=== PATIENT | female | born 1990 | race Two or more races ===

== ENCOUNTER → 2017-02-12 | Outpatient (REF) | payer OTHER ==
[2017-02-12 19:06] LABS: ALBUMIN 4.3 GM/DL (3.2-5.2); ALBUMIN/GLOBULIN RATIO 2.15 (1.00-1.93); ALKALINE PHOSPHATASE 86 U/L (45-117); ALT/SGPT 27 U/L (12-78); ANION GAP 5 MEQ/L (8-16); AST/SGOT 9 U/L (15-37); BILIRUBIN,TOTAL 0.4 MG/DL (0.2-1.0); BLOOD UREA NITROGEN 12 MG/DL (7-18); CALCIUM LEVEL 9.7 MG/DL (8.5-10.1); CARBON DIOXIDE LEVEL 30 MEQ/L (21-32); CHLORIDE LEVEL 107 MEQ/L (98-107); CREATININE FOR GFR 0.85 MG/DL (0.55-1.02); GLOMERULAR FILTRATION RATE > 60.0 (>60); GLUCOSE, FASTING 75 MG/DL (70-105); POTASSIUM SERUM 4.3 MEQ/L (3.5-5.1); SODIUM LEVEL 142 MEQ/L (136-145); TOTAL PROTEIN 6.3 GM/DL (6.4-8.2)
== END ==
LOC: M SFHCPLAZ 14:59
PROVIDERS: ATTEND Family Medicine
DX: Z11.3 Encounter for screening for infections with a predominantly sexual mode of transmission (principal); F10.99 Alcohol use, unspecified with unspecified alcohol-induced disorder; E55.9 Vitamin D deficiency, unspecified; Z11.59 Encounter for screening for other viral diseases

== ENCOUNTER → 2017-03-15 | Outpatient (REF) | payer OTHER | LOC: M SFHCLERA 14:07 | PROVIDERS: ATTEND Nurse Practitioner Family | DX: R30.0 Dysuria (principal) ==

== ENCOUNTER → 2017-03-30 | Outpatient (REF) | payer OTHER | LOC: M SFHCPLAZ 11:52 | PROVIDERS: ATTEND Family Medicine | DX: Z11.3 Encounter for screening for infections with a predominantly sexual mode of transmission (principal); Z12.4 Encounter for screening for malignant neoplasm of cervix ==

== ENCOUNTER → 2017-05-10 | Outpatient (REF) | payer OTHER | LOC: M SFHCPLAZ 08:28 | PROVIDERS: ATTEND Family Medicine | DX: Z11.3 Encounter for screening for infections with a predominantly sexual mode of transmission (principal) ==

== ENCOUNTER → 2017-07-05 | Day surgery (SDC) | payer OTHER ==
[~2017-07-05] MED LIST: BUPIVACAINE HCL 0.5% 10 ML VIAL As Ordered; LIDOCAINE W/EPINEPHRINE 1% 20ML VIAL As Ordered; LR 1,000 ML IV
== END ==
LOC: M SDC 08:46
DX: J35.01 Chronic tonsillitis (principal); Z53.09 Procedure and treatment not carried out because of other contraindication

== ENCOUNTER → 2017-09-10 | Outpatient (CLI) | payer OTHER | LOC: M OUTALCOH 09:19 | DX: Z13.9 Encounter for screening, unspecified (principal); F10.20 Alcohol dependence, uncomplicated ==

== ENCOUNTER 2017-09-24 09:18 | Outpatient (RCR) | payer OTHER | END 2017-09-29 | LOC: M OUTALCOH 09:18 | DX: F10.20 Alcohol dependence, uncomplicated (principal); Z72.0 Tobacco use ==

== ENCOUNTER 2017-10-01 13:20 | Outpatient (RCR) | payer OTHER | END 2017-10-29 | LOC: M OUTALCOH 10-08 10:00 | DX: F10.20 Alcohol dependence, uncomplicated (principal); Z72.0 Tobacco use ==

== ENCOUNTER → 2017-10-12 | Outpatient (REF) | payer OTHER | LOC: M LAB REF 16:29 | DX: R30.0 Dysuria (principal) ==

== ENCOUNTER 2017-11-01 11:22 | Outpatient (RCR) | payer OTHER | END 2017-11-29 | LOC: M OUTALCOH 11:22 | DX: F10.20 Alcohol dependence, uncomplicated (principal); Z72.0 Tobacco use ==

== ENCOUNTER 2017-12-03 10:19 | Outpatient (RCR) | payer OTHER | END 2017-12-29 | LOC: M OUTALCOH 12-10 15:00 | DX: F10.20 Alcohol dependence, uncomplicated (principal); Z72.0 Tobacco use ==

== ENCOUNTER → 2017-12-26 | Outpatient (REF) | payer OTHER | LOC: M SFHCLERA 12:59 | DX: J02.9 Acute pharyngitis, unspecified (principal) ==

== ENCOUNTER 2017-12-31 10:46 | Outpatient (RCR) | payer OTHER | END 2018-01-29 | LOC: M OUTALCOH 01-07 11:30 | DX: F10.20 Alcohol dependence, uncomplicated (principal); Z72.0 Tobacco use ==

== ENCOUNTER → 2018-02-20 | Outpatient (REF) | payer OTHER ==
[2018-02-20 16:00] LABS: APPEARANCE, URINE CLOUDY (CLEAR); BACTERIA, URINE AUTO 2+ (NEGATIVE); BILIRUBIN, URINE AUTO NEGATIVE (NEGATIVE); BLOOD, URINE BLOOD 1+ (NEGATIVE); COLOR, URINE YELLOW (YELLOW); GLUCOSE, URINE (UA) AUTO NEGATIVE (NEGATIVE); KETONE, URINE AUTO NEGATIVE (NEGATIVE); LEUKOCYTE ESTERASE, URINE AUTO 3+ (NEGATIVE); NITRITE, URINE AUTO POSITIVE (NEGATIVE); PROTEIN, URINE AUTO 1+ mg/dL (NEGATIVE); RBC, URINE AUTO 21 /HPF (0-3); SPECIFIC GRAVITY URINE AUTO 1.017 (1.002-1.035); SQUAMOUS EPITHELIAL CELL UR AU 0 /HPF (0-6); UROBILINOGEN, URINE AUTO 0.2 mg/dL (0.0-2.0); WBC, URINE AUTO TNTC /HPF (0-3)
[2018-02-20 17:02] LABS: HIV 1&2 SCREEN CENTAUR NEGATIVE (NEGATIVE)
[2018-02-20 17:45] LABS: CHLAMYDIA DNA AMPLIFICATION NEGATIVE (NEGATIVE); GC DNA AMPLIFICATION NEGATIVE (NEGATIVE)
[2018-02-23 00:07] LABS: Candida species Negative (Negative); Gardnerella vaginalis Negative (Negative); Trichamonas vaginalis Negative (Negative)
== END ==
LOC: M SFHCPLAZ 14:38
DX: N89.8 Other specified noninflammatory disorders of vagina (principal); R30.0 Dysuria; E55.9 Vitamin D deficiency, unspecified; Z11.3 Encounter for screening for infections with a predominantly sexual mode of transmission

== ENCOUNTER → 2022-01-25 | Outpatient (CLI) | payer OTHER ==
[~2022-01-25] MED LIST changes: -BUPIVACAINE HCL 0.5% 10 ML VIAL As Ordered; +GLUC1CAP10 PO; -LIDOCAINE W/EPINEPHRINE 1% 20ML VIAL As Ordered; -LR 1,000 ML IV
== END ==
LOC: M RAD 15:14
PROVIDERS: ATTEND Otolaryngology
DX: H66.3X1 Other chronic suppurative otitis media, right ear (principal)

== ENCOUNTER 2022-09-17 04:09 | Emergency (ER) | payer OTHER ==
[~2022-09-17] VITALS: Ht 167.6 cm; Wt 92.5 kg
[2022-09-17] MEDS ORDERED: CEFD300C41 PO (05:33)
[2022-09-17] MEDS ORDERED: CEFDINIR 300 MG CAP (OMNICEF) PO ONE (05:35)
[2022-09-17 05:42] VITALS: BP 129/74
== END 2022-09-17 05:44 | disposition home or self-care (01) ==
LOC: M ED 04:09
DX: H65.01 Acute serous otitis media, right ear (principal); F10.10 Alcohol abuse, uncomplicated; Z79.2 Long term (current) use of antibiotics

== ENCOUNTER 2022-11-08 18:25 | Observation (INO) | payer OTHER ==
[~2022-11-08] VITALS: Ht 167.6 cm; Wt 90.9 kg
[~2022-11-08 18:25] MED LIST changes: +CEFD300C41 PO
[2022-11-08 20:11] LABS: BASO # 0.1 10^3/uL (0.0-0.2); EOS % 0.1 % (0.0-3.0); HEMATOCRIT 48.6 % (36.0-47.0); HEMOGLOBIN 16.2 g/dl (12.0-15.5); LYMPH # 1.2 10^3/uL (1.5-5.0); LYMPH % 15.2 % (24.0-44.0); MEAN CORPUSCULAR HEMOGLOBIN 31.5 pg (27.0-33.0); MEAN CORPUSCULAR HGB CONC 33.3 g/dl (32.0-36.5); MEAN CORPUSCULAR VOLUME 94.6 fl (80.0-96.0); MONO # 0.8 10^3/uL (0.0-0.8); MONO % 9.7 % (2.0-8.0); NEUTROPHILS # 5.7 10^3/uL (1.5-8.5); NEUTROPHILS % 73.5 % (36.0-66.0); PLATELET COUNT, AUTOMATED 331 10^3/uL (150-450); RED BLOOD COUNT 5.14 10^6/uL (4.00-5.40); WHITE BLOOD COUNT 7.8 10^3/uL (4.0-10.0)
[2022-11-08 20:15] LABS: LIPASE 36 U/L (12-53)
[2022-11-08 20:17] LABS: ALBUMIN 4.5 G/DL (3.2-5.2); ALKALINE PHOSPHATASE 89 U/L (46-116); ALT/SGPT 169 U/L (7.0-40); AST/SGOT 126 U/L (<34); BILIRUBIN,DIRECT 0.4 MG/DL (<0.4); BLOOD UREA NITROGEN 7 MG/DL (9-23); CALCIUM LEVEL 9.6 MG/DL (8.5-10.1); CARBON DIOXIDE LEVEL 24 MMOL/L (20-31); CHLORIDE LEVEL 100 MMOL/L (98-107); GLOMERULAR FILTRATION RATE > 60.0 (>60); GLUCOSE, FASTING 104 MG/DL (60-100); POTASSIUM SERUM 3.7 MMOL/L (3.5-5.1); SODIUM LEVEL 141 MMOL/L (136-145); TOTAL PROTEIN 7.1 G/DL (5.7-8.2)
[2022-11-08] MEDS ORDERED: NS 1,000 ML IV ONE (22:20)
[2022-11-08] MEDS ORDERED: PANTOPRAZOLE 40MG VIAL IV ONE (22:20)
[2022-11-08] MEDS ORDERED: ONDANSETRON 4MG 2ML VIAL IV ONE (22:20)
[2022-11-08] MEDS ORDERED: ISOVUE-370 76% 100ML VIAL As Ordered ONE (22:27)
[2022-11-08] MEDS ORDERED: THIAMINE 100 MG TAB PO SCH (22:30)
[2022-11-08 23:22] LABS: VENOUS BASE EXCESS 1.2 (-2.0-2.0); VENOUS HCO3 23.8 MMOL/L (23.0-27.0); VENOUS O2 SATURATION 96.5 % (60.0-80.0); VENOUS PARTIAL PRESSURE CO2 32.7 mmHg (38.0-50.0); VENOUS PARTIAL PRESSURE O2 80.4 mmHg (30.0-50.0); VENOUS STANDARD HCO3 25.5 MMOL/L; VENOUS TOTAL CO2 24.8 MMOL/L (24.0-28.0)
[2022-11-08] MEDS: LORazepam 2 MG TAB PO PRN (23:28)
[2022-11-08 23:43] LABS: AMPHETAMINES LEVEL URINE NEGATIVE (NEGATIVE); BENZODIAZEPINES URINE NEGATIVE (NEGATIVE)
[2022-11-08 23:44] LABS: BARBITURATES URINE NEGATIVE (NEGATIVE); CANNABINOIDS URINE NEGATIVE (NEGATIVE); COCAINE METABOLITE URINE NEGATIVE (NEGATIVE); METHADONE URINE NEGATIVE (NEGATIVE); OPIATES URINE NEGATIVE (NEGATIVE); PHENCYCLIDINE URINE NEGATIVE (NEGATIVE)
[2022-11-08 23:45] LABS: RSV AMPLIFICATION NEGATIVE (NEGATIVE)
[2022-11-08 23:45] LABS: ETHYL ALCOHOL (ETHANOL) 0.016 % (0.000-0.010); MAGNESIUM LEVEL 2.3 MG/DL (1.8-2.4)
[2022-11-08 23:46] LABS: CK-MB VALUE MASS < 1.0 NG/ML (<3.6)
[2022-11-08 23:47] LABS: CPK CREATINE PHOSPHOKINASE 136 U/L (34-145); MB/CK RELATIVE INDEX 0.73 (< OR =4)
[2022-11-08 23:48] LABS: ACETONE/KETONE 2.24 MMOL/L (0.02-0.27)
[2022-11-08 23:56] LABS: INR 0.98; PROTHROMBIN TIME 13.2 SECONDS (12.5-14.5)
[2022-11-08 23:57] LABS: PARTIAL THROMBOPLASTIN TIME 25.1 SECONDS (24.8-34.2)
[2022-11-09] MEDS ORDERED: NS 1,730 ML in IV 1 EA IV ONE (00:15)
[2022-11-09] MEDS: LORazepam 2 MG TAB PO PRN (00:28)
[2022-11-09] MEDS ORDERED: cefTRIAXone SOD 1 GM in D5W MINI-BAG PLUS 50 ML IV ONE (01:45)
[2022-11-09] MEDS ORDERED: BUSP1TAB PO ×2 (02:20→10:04)
[2022-11-09] MEDS ORDERED: FLON1SPR (02:22)
[2022-11-09] MEDS ORDERED: LEVOTAB10 PO (02:22)
[2022-11-09] MEDS ORDERED: ONDANSETRON 4MG 2ML VIAL IV PRN (04:30)
[2022-11-09] MEDS ORDERED: METOCLOPRAMIDE INJ 10MG/2ML VIAL IV PRN (04:30)
[2022-11-09] MEDS ORDERED: PROMETHAZINE 25MG/ML 1ML VIAL IV PRN (04:30)
[2022-11-09 05:50] LABS: HEMATOCRIT 41.6 % (36.0-47.0)
[2022-11-09] MEDS: LR 1,000 ML IV SCH ×3 (06:00→20:55)
[2022-11-09 06:03] LABS: HEMOGLOBIN 13.6 g/dl (12.0-15.5)
[2022-11-09 08:20] LABS: ALBUMIN 3.5 G/DL (3.2-5.2); ALKALINE PHOSPHATASE 66 U/L (46-116); ALT/SGPT 119 U/L (7.0-40); AST/SGOT 69 U/L (<34); BILIRUBIN,TOTAL 1.1 MG/DL (0.3-1.2); BLOOD UREA NITROGEN 7 MG/DL (9-23); CALCIUM LEVEL 8.3 MG/DL (8.5-10.1); CARBON DIOXIDE LEVEL 24 MMOL/L (20-31); CHLORIDE LEVEL 108 MMOL/L (98-107); CREATININE FOR GFR 0.74 MG/DL (0.55-1.30); GLOMERULAR FILTRATION RATE > 60.0 (>60); GLUCOSE, FASTING 86 MG/DL (60-100); POTASSIUM SERUM 3.7 MMOL/L (3.5-5.1); SODIUM LEVEL 141 MMOL/L (136-145); TOTAL PROTEIN 5.5 G/DL (5.7-8.2)
[2022-11-09] MEDS ORDERED: FOLIC ACID 1MG TAB PO SCH (09:00)
[2022-11-09] MEDS ORDERED: MULTIVITAMINS/MINERALS THERAP 1 TAB PO SCH (09:00)
[2022-11-09] MEDS ORDERED: HOME MED LIST COMPLETE! XX SCH (10:05)
[2022-11-09] MEDS: PANTOPRAZOLE 40MG VIAL IV SCH ×2 (10:42→20:54)
[2022-11-09 10:45] VITALS: BP 131/84
[2022-11-09 14:00] VITALS: BP 129/91
[2022-11-09] MEDS: ONDANSETRON 4MG ORAL DISINTEGRATING TAB SL PRN ×2 (15:46→20:54)
[2022-11-09] MEDS ORDERED: PILL CUTTER 1 EACH XX PRN (15:50)
[2022-11-09] MEDS: busPIRone 5 MG TAB PO SCH (20:55)
[2022-11-09] MEDS ORDERED: NICOTINE 7 MG/24 HR TRANSDERMAL TD PRN (21:20)
[2022-11-09 22:00] VITALS: BP 165/101
[2022-11-09] MEDS ORDERED: cefTRIAXone SOD 1 GM in D5W MINI-BAG PLUS 50 ML IV SCH (22:00)
[2022-11-09 23:00] VITALS: BP 155/91
[2022-11-10] MEDS: ONDANSETRON 4MG ORAL DISINTEGRATING TAB SL PRN ×3 (02:32→12:28)
[2022-11-10] MEDS: LR 1,000 ML IV SCH ×2 (04:30→13:55)
[2022-11-10 05:56] LABS: BASO # 0.1 10^3/uL (0.0-0.2); BASO % 1.1 % (0.0-1.0); EOS # 0.1 10^3/uL (0.0-0.5); EOS % 1.3 % (0.0-3.0); HEMATOCRIT 38.5 % (36.0-47.0); HEMOGLOBIN 12.6 g/dl (12.0-15.5); LYMPH # 1.5 10^3/uL (1.5-5.0); MEAN CORPUSCULAR HEMOGLOBIN 32.1 pg (27.0-33.0); MEAN CORPUSCULAR HGB CONC 32.7 g/dl (32.0-36.5); MONO # 0.5 10^3/uL (0.0-0.8); MONO % 8.8 % (2.0-8.0); NEUTROPHILS # 3.3 10^3/uL (1.5-8.5); NEUTROPHILS % 61.4 % (36.0-66.0); PLATELET COUNT, AUTOMATED 184 10^3/uL (150-450); RED BLOOD COUNT 3.93 10^6/uL (4.00-5.40); WHITE BLOOD COUNT 5.4 10^3/uL (4.0-10.0)
[2022-11-10 06:00] VITALS: BP 134/97
[2022-11-10 06:21] LABS: ALBUMIN 3.2 G/DL (3.2-5.2); ALKALINE PHOSPHATASE 60 U/L (46-116); ALT/SGPT 98 U/L (7.0-40); AST/SGOT 59 U/L (<34); BILIRUBIN,TOTAL 1.2 MG/DL (0.3-1.2); BLOOD UREA NITROGEN 6 MG/DL (9-23); CALCIUM LEVEL 8.4 MG/DL (8.5-10.1); CARBON DIOXIDE LEVEL 26 MMOL/L (20-31); CHLORIDE LEVEL 105 MMOL/L (98-107); CREATININE FOR GFR 0.79 MG/DL (0.55-1.30); GLOMERULAR FILTRATION RATE > 60.0 (>60); GLUCOSE, FASTING 89 MG/DL (60-100); MAGNESIUM LEVEL 1.6 MG/DL (1.8-2.4); POTASSIUM SERUM 3.3 MMOL/L (3.5-5.1); SODIUM LEVEL 141 MMOL/L (136-145)
[2022-11-10 08:00] VITALS: BP 134/97
[2022-11-10] MEDS ORDERED: POTASSIUM CHLORIDE 10MEQ SR TABLET PO ONE (08:00)
[2022-11-10] MEDS ORDERED: MAGNESIUM OXIDE 400MG TAB (MAG-OX) PO ONE (08:00)
[2022-11-10] MEDS: PANTOPRAZOLE 40MG VIAL IV SCH (09:03)
[2022-11-10] MEDS: busPIRone 5 MG TAB PO SCH (09:04)
[2022-11-10] MEDS ORDERED: ONDA4TAB6 SL (10:04)
[2022-11-10] MEDS ORDERED: cefTRIAXone SOD 1 GM in D5W MINI-BAG PLUS 50 ML IV ONE (10:10)
[2022-11-10 14:00] VITALS: BP 145/85
== END 2022-11-10 16:30 | disposition home or self-care (01) ==
LOC: M ED 18:25 → M ED INP 11-09 04:30 → M MS5PR 11-09 10:08
PROVIDERS: ADMIT Internal Medicine; ATTEND Internal Medicine
DX: R11.2 Nausea with vomiting, unspecified (principal); F12.288 Cannabis dependence with other cannabis-induced disorder; J30.2 Other seasonal allergic rhinitis; F17.200 Nicotine dependence, unspecified, uncomplicated; Z79.899 Other long term (current) drug therapy; D27.1 Benign neoplasm of left ovary
CPT/HCPCS: 36415; 74177; 80048; 80053; 80076; 80307; 81001; 82010; 82077; 82140; 82550; 82553; 82803; 83605; 83690; 83735; 84702; 85014; 85018; 85025; 85610; 85730; 86850; 86900; 86901; 87040; 87088; 87186; 87631; 93005; 96365; 96366; 96375; 96376; 99284; C9113; J0696; J2405; Q9967

== ENCOUNTER → 2023-01-25 | Day surgery (SDC) | payer OTHER ==
[~2023-01-25] VITALS: Ht 167.6 cm; Wt 97.0 kg
[~2023-01-25] MED LIST changes: +BUSP1TAB PO; +FLON1SPR; +FLUT50SP17; +GABA-1171 PO; +GABA-282 PO; +GNP250TA9 PO; +LEVOTAB10 PO; +LIDOCAINE 2% 100MG/5ML SDV (FOR ANES.) As Ordered ONE; +NAPR-885 PO; +NS 1,000 ML IV ONE; +ONDA4TAB6 SL; +PANT40TA29 PO; +POTA99TA10 PO; +SUPETAB44 PO; +THIA100T7 PO; +fentaNYL 100 MCG/2 ML INJECTION As Ordered ONE; +propofoL 200 MG/20 ML VIAL As Ordered ONE
[2023-01-25 14:03] VITALS: BP 124/97; TEMP 97; O2SAT 99
== END | disposition home or self-care (01) ==
LOC: M OPP 10:03
PROVIDERS: ATTEND Internal Medicine Gastroenterology
DX: K63.5 Polyp of colon (principal); K62.5 Hemorrhage of anus and rectum; K64.4 Residual hemorrhoidal skin tags; K64.8 Other hemorrhoids; Z80.0 Family history of malignant neoplasm of digestive organs; K29.70 Gastritis, unspecified, without bleeding; K22.89 Other specified disease of esophagus; K92.0 Hematemesis; Z79.1 Long term (current) use of non-steroidal anti-inflammatories (NSAID); Z79.52 Long term (current) use of systemic steroids; Z79.891 Long term (current) use of opiate analgesic; Z79.899 Other long term (current) drug therapy
CPT/HCPCS: 43239; 45385; 88305; J3010

== ENCOUNTER → 2023-11-12 | Outpatient (CLI) | payer OTHER ==
[~2023-11-12] MED LIST changes: +CEFD1CAP9 PO; -CEFD300C41 PO; -FLUT50SP17; +FLUTISP; -LIDOCAINE 2% 100MG/5ML SDV (FOR ANES.) As Ordered ONE; -NS 1,000 ML IV ONE; -fentaNYL 100 MCG/2 ML INJECTION As Ordered ONE; -propofoL 200 MG/20 ML VIAL As Ordered ONE
== END ==
LOC: M WUC 15:16
PROVIDERS: ATTEND Obstetrics & Gynecology
DX: N91.2 Amenorrhea, unspecified (principal)

== ENCOUNTER 2024-09-29 08:29 | Emergency (ER) | payer OTHER ==
[~2024-09-29] VITALS: Ht 170.2 cm; Wt 83.8 kg
[~2024-09-29 08:29] MED LIST changes: +GABA-1172 PO; -GABA-282 PO; +ONDA-282 SL; -ONDA4TAB6 SL
[2024-09-29] MEDS: ONDANSETRON 4MG 2ML VIAL IV ONE (12:09)
[2024-09-29 12:15] LABS: BASO # 0.1 10^3/uL (0.0-0.2); BASO % 1.4 % (0.0-1.0); EOS % 0.4 % (0.0-3.0); HEMATOCRIT 42.8 % (36.0-47.0); HEMOGLOBIN 13.7 g/dl (12.0-15.5); LYMPH # 1.5 10^3/uL (1.5-5.0); LYMPH % 18.4 % (24.0-44.0); MEAN CORPUSCULAR VOLUME 78.1 fl (80.0-96.0); MONO # 0.6 10^3/uL (0.0-0.8); MONO % 7.5 % (2.0-8.0); NEUTROPHILS % 71.9 % (36.0-66.0); PLATELET COUNT, AUTOMATED 468 10^3/uL (150-450); RED BLOOD COUNT 5.48 10^6/uL (4.00-5.40); WHITE BLOOD COUNT 8.4 10^3/uL (4.0-10.0)
[2024-09-29 12:42] LABS: ETHYL ALCOHOL (ETHANOL) 0.142 % (0.000-0.010)
[2024-09-29 12:44] LABS: ALBUMIN 4.6 G/DL (3.2-5.2); BILIRUBIN,DIRECT 0.3 MG/DL (<0.4); BILIRUBIN,TOTAL 0.7 MG/DL (0.3-1.2); TOTAL PROTEIN 7.1 G/DL (5.7-8.2)
[2024-09-29] MEDS ORDERED: ONDA-282 PO (13:11)
[2024-09-29 13:23] VITALS: BP 110/56; TEMP 98.3; O2SAT 98
== END 2024-09-29 13:33 | disposition home or self-care (01) ==
LOC: M ED 08:29
DX: R11.2 Nausea with vomiting, unspecified (principal); F10.10 Alcohol abuse, uncomplicated; F43.10 Post-traumatic stress disorder, unspecified; F17.200 Nicotine dependence, unspecified, uncomplicated; Z79.899 Other long term (current) drug therapy; Z79.83 Long term (current) use of bisphosphonates; Z79.1 Long term (current) use of non-steroidal anti-inflammatories (NSAID)
CPT/HCPCS: 80047; 80076; 82077; 83690; 85025; 96374; 99284; J2405